=== PATIENT | male | born 1950 | race Caucasian/White ===

== ENCOUNTER 2021-03-08 18:20 | Emergency (ER) | payer MEDICARE, OTHER ==
[~2021-03-08 18:20] MED LIST: FLOMAX 0.4 MG0.4 MG PO; FUROSEMIDE20 MG PO; METOPROLOL SUCC25 MG PO; PANTOPRAZOLE SO40 MG PO; PERCOCET 5/325 T1 EA PO; POTASSIUM CHLO20 ME1 PO; TYLENOL 325MG325 MG PO; VALSARTAN160 MG PO
[2021-03-09 00:52] LABS: RED BLOOD COUNT 4.75 M/UL (4.20-5.50); WHITE BLOOD COUNT 5.2 K/UL (4.5-11.0)
[2021-03-09 01:14] LABS: BUN/CREATININE RATIO 19 (0-10)
[2021-03-09] MEDS ORDERED: OMNICEF 300 MG300 MG PO (03:16)
[2021-03-09] MEDS ORDERED: DECADRON6 MG PO (03:16)
== END 2021-03-09 05:00 | disposition home or self-care (01) ==
LOC: ER1 18:20
PROVIDERS: Physician Assistant Medical
DX: Z23 Encounter for immunization (principal); U07.1 COVID-19; E11.9 Type 2 diabetes mellitus without complications; I10 Essential (primary) hypertension
CPT/HCPCS: 71045; 80053; 82550; 82553; 83615; 83874; 84484; 85025; 86140; 99283; M0243

== ENCOUNTER → 2021-12-08 | Outpatient (CLI) | payer MEDICARE, OTHER ==
[~2021-12-08] MED LIST changes: +DECADRON6 MG PO; +OMNICEF 300 MG300 MG PO
== END ==
LOC: US 09:30 → ECHO 10:00
DX: R55 Syncope and collapse (principal); I65.23 Occlusion and stenosis of bilateral carotid arteries; I08.3 Combined rheumatic disorders of mitral, aortic and tricuspid valves
CPT/HCPCS: ECHO; 93306; 93880